=== PATIENT | female | born 1980 | race Caucasian/White ===

== ENCOUNTER 2017-05-01 08:57 | Emergency (ER) | payer OTHER ==
[2017-05-01 09:03] VITALS: BP 144/82
[2017-05-01 10:08] LABS: EBV Response YES
--- NOTE | 2017-05-01 11:09 | UC ---
Asif King Rebecca, scribed for Cj Kelly MD on 05/01/17 at 0935 . Throat Pain/Nasal Carmelo HPI - HPI Summary HPI Summary: Pt is a 37 y/o F who presents to [facility] c/o sore throat with white spots on the roof of the mouth and "back of the tonsils." Sx began 4-5 days ago and have been constant since onset. Pain is currently severe, ranked 8/10. Treated with salt water gargles, nasal spray and lemon honey tea. Sx aggravated and alleviated by nothing. Additionally c/o fever, chills and fatigue for the past week. Notes nausea last week which is resolved. No recent sick contact with mono. 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 PMHx asthma, allergies. - History of Current Complaint Chief Complaint: UCRespiratory Stated Complaint: SORE THROAT Time Seen by Provider: 05/01/17 09:26 Hx Obtained From: Patient Hx Last Menstrual Period: 04/22/17 Onset/Duration: Lasting Days - 4-5 days, Still Present Severity: Severe Pain Intensity: 8 Pain Scale Used: 0-10 Numeric - Allergies/Home Medications Allergies/Adverse Reactions: Allergies Allergy/AdvReac Type Severity Reaction Status Date / Time Sulfamethoxazole Allergy Intermediate Hives Verified 04/22/16 22:26 w/Trimethoprim [From Bactrim] Home Medications: Home Medications Fexofenadine (NF) [Rosy (NF)] 60 mg PO 05/01/17 [History] Nadolol [Corgard] 20 mg PO 05/01/17 [History] PMH/Surg Hx/FS Hx/Imm Hx Cardiovascular History: Hypertension Respiratory History: Asthma, Other Other Respiratory History: Allergies Psychological History: Depression - Surgical History Surgical History: Yes Surgery Procedure, Year, and Place: carpal tunnel release; - Family History Known Family History: Positive: Other - Arthritis, skin CA - Social History Alcohol Use: None Substance Use Type: None Smoking Status (MU): Never Smoked Tobacco Review of Systems Constitutional: Fever, Chills, Fatigue Skin: Negative Eyes: Negative ENT: Sore Throat - with white spots on the roof of the mouth and back of tonsils Respiratory: Negative Cardiovascular: Negative Gastrointestinal: Nausea - last week Genitourinary: Negative Motor: Negative Neurovascular: Negative Musculoskeletal: Negative Neurological: Negative Psychological: Negative All Other Systems Reviewed And Are Negative: Yes Physical Exam Triage Information Reviewed: Yes Vital Signs: Initial Vital Signs Temp 97.1 F 05/01/17 08:59 Pulse 98 05/01/17 08:59 Resp 16 05/01/17 08:59 BP 144/82 05/01/17 08:59 Pulse Ox 100 05/01/17 08:59 Vital Signs Reviewed: Yes - Additional Comments The patient is well-nourished in no acute distress and in no acute pain. The skin is warm and dry and skin color reflects adequate perfusion. HEENT: The head is normocephalic and atraumatic. The pupils are equal and reactive. The conjunctivae are clear and without drainage. Rhinorrhea in the nose. Mouth reveals moist mucous membranes. The left tonsil is erythematous and slightly swollen with no exudates. Right tonsil is slightly erythematous. There is post-nasal drip. There is a white spot on the roof of her mouth. The uvula is midline. The external ears are intact. The ear canals are patent and without drainage. The tympanic membranes are intact with no effusions. The sinuses are non-tender. Neck is supple with full range of motion and non-tender. There is left submandibular adenopathy. Respiratory: Chest is non-tender. Lungs are clear to auscultation and breath sounds are symmetrical and equal. Cardiovascular: Hear is regular rate and rhythm. There is no murmur or rub auscultated. There is no peripheral edema and pulses are symmetrical and equal. Abdomen: The abdomen is soft and non-tender. There is no organomegaly palpated. Neurological: Patient is alert and oriented to person, place and time. The patient has symmetrical motor strength in all four extremities. Cranial nerves are grossly intact. Deep tendon reflexes are symmetrical and equal in all four extremities. Psychiatric: The patient has an appropriate affect and does not exhibit any anxiety or depression. Throat Pain/Nasal Course/Dx - Course Assessment/Plan: Pt is a 37 y/o F who presents to [facility] c/o sore throat with white spots on the roof of the mouth and "back of the tonsils" for 4-5 days. Pain is currently severe, ranked 8/10. Treated with salt water gargles, nasal spray and lemon honey tea. Additionally c/o fever, chills and fatigue for the past week. Notes nausea last week which is resolved. No recent sick contact with mono. 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 PMHx asthma, allergies. Group A rapid strep negative. Monospot was ordered. She will be D/C to home with Dx of pharyngitis and tonsillitis and Rx for Amxocillin. She understands and agrees. Patient medications reviewed. Elevated BP noted, advised to follow up with PCP. - Differential Dx/Diagnosis Differential Diagnosis/HQI/PQRI: Mononucleosis, Peritonsillar Abscess, Pharyngitis, Tonsillitis Provider Diagnoses: Tonsillitis, Pharyngitis Discharge - Discharge Plan Condition: Stable Disposition: HOME Prescriptions: Amoxicillin PO (*) [Amoxicillin 500 MG CAP*] 500 mg PO TID #30 cap Patient Education Materials: Tonsillitis (ED), Pharyngitis (ED) Referrals: Carlos Alberto Martinez MD [Primary Care Provider] - 3 Days The documentation as recorded by the Asif aguilar Rebecca accurately reflects the service I personally performed and the decisions made by , Cj Kelly MD.
[2017-05-01 13:08] LABS: Mono Kit Lot# 7010011
[2017-05-01 13:09] LABS: Manual Entry Verification AS
[2017-05-01 13:15] LABS: Mono Internal Control QC Line Present
[2017-05-02 11:03] LABS: EBV Capsid Ag IgG Ab Positive (Negative); EBV Capsid Ag IgM Ab Negative (Negative)
== END 2017-05-01 09:48 | disposition home or self-care (01) ==
LOC: UCEAST 08:57
DX: J03.90 Acute tonsillitis, unspecified (principal); I10 Essential (primary) hypertension; J45.909 Unspecified asthma, uncomplicated; F32.9 Major depressive disorder, single episode, unspecified; Z88.2 Allergy status to sulfonamides
CPT/HCPCS: 36415; 86308; 86664; 86665; 87651; 99212; G0463